=== PATIENT | female | born 1975 | race American Indian/Alaskan Native ===

== ENCOUNTER 2016-12-10 02:30 | Emergency (ER) | payer MEDICARE, OTHER ==
[2016-12-10 02:47] VITALS: BP 144/96
[2016-12-10 03:24] LABS: Anion Gap 20 mmol/L; Blood Urea Nitrogen 23 mg/dL (7-17); Calcium 8.6 mg/dL (8.4-10.2); Carbon Dioxide 18 mmol/L (22-30); Chloride 99.2 mmol/L (98-107); Glucose 149 mg/dL (65-100); Potassium 3.6 mmol/L (3.6-5.0); Sodium 134 mmol/L (137-145)
[2016-12-10 03:41] LABS: Hematocrit 43.7 % (30.3-42.9); Hemoglobin 15.3 gm/dl (10.1-14.3); Mean Corpuscular HGB Conc 35 % (30-34); Mean Corpuscular Hemoglobin 31 pg (28-32); Mean Corpuscular Volume 90 fl (79-97); Platelet Count 283 K/mm3 (140-440); Red Blood Count 4.87 M/mm3 (3.65-5.03); Red Cell Distribution Width 14.6 % (13.2-15.2); White Blood Count 9.6 K/mm3 (4.5-11.0)
[2016-12-10 04:20] LABS: Basophils % (Manual) 0 % (0.0-1.8); Blastocytes % (Manual) 0 %
[2016-12-10 04:21] LABS: Diff Status Complete; Platelet Estimate Consistent w Auto
== END 2016-12-10 02:55 | disposition left against medical advice (07) ==
LOC: ED 02:30
DX: R07.9 Chest pain, unspecified (principal); I25.2 Old myocardial infarction; E78.00 Pure hypercholesterolemia, unspecified; Z53.21 Procedure and treatment not carried out due to patient leaving prior to being seen by health care provider
CPT/HCPCS: 36415; 80048; 84484; 85007; 85025; 93005; 93010

== ENCOUNTER 2017-06-01 00:16 | Inpatient (IN) | payer MEDICARE, OTHER ==
[2017-06-01] MEDS ORDERED: NACL 0.9% 1000 ML 1,000 ML IV ONE (00:26)
[2017-06-01] MEDS ORDERED: MORPHINE IV ONE (00:27)
[2017-06-01] MEDS ORDERED: ZOFRAN ONE ×2 (00:30→01:31)
[2017-06-01] MEDS ORDERED: MORPHINE ONE (00:30)
--- NOTE | 2017-06-01 00:30 | Emergency Department Report ---
HPI - General Time Seen by Provider: 06/01/17 00:26 - HPI HPI: 41-year-old -[place] female presents to the emergency department via EMS from home with complaint of midsternal left-sided chest pain that began about 30 minutes prior to presentation and feels like a pressure sensation as if someone is sitting on her chest. She has some mild shortness of breath with it. She has some nausea without vomiting. No diaphoresis, back pain. She received 325 mg of aspirin in route. She has a past medical history of coronary artery disease with 3 previous GA and [address], hyperlipidemia. Her primary care and child adolescent psychiatrist is through the [facility]. ED Past Medical Hx - Past Medical History Hx Hypertension: No Hx Heart Attack/AMI: Yes (2013 3X) Hx Congestive Heart Failure: No Hx Diabetes: No Hx Deep Vein Thrombosis: No Hx Pulmonary Embolism: No Hx Renal Disease: No Hx Arthritis: No Hx Seizures: No Hx Asthma: No Hx COPD: No Hx HIV: No Additional medical history: ms. high cholesterol. cad - Surgical History Hx Coronary Stent: Yes Hx Pacemaker: No Hx Cholecystectomy: No Hx Appendectomy: No Hx Breast Surgery: Yes (Breast augmentation) Additional Surgical History: left shoulder and left thumb. "tummy tuck" - Social History Smoking Status: Never Smoker - Medications Home Medications: Home Medications Medication Instructions Recorded Confirmed Last Taken Type Aspirin [Aspirin BABY CHEW TAB] 81 mg PO DAILY 10/29/14 10/29/14 1 Day Ago History ~10/28/14 ED Review of Systems ROS: Stated complaint: CHEST PAIN Other details as noted in HPI Comment: All other systems reviewed and negative Constitutional: denies: chills, fever Eyes: denies: eye pain, eye discharge, vision change ENT: denies: ear pain, throat pain Respiratory: shortness of breath. denies: cough Cardiovascular: chest pain. denies: palpitations Gastrointestinal: nausea. denies: vomiting Genitourinary: denies: urgency, dysuria, discharge Musculoskeletal: denies: back pain, joint swelling, arthralgia Skin: denies: rash, lesions Neurological: denies: headache, weakness, paresthesias Physical Exam - Physical Exam Physical Exam: GENERAL: The patient is well-developed well-nourished. The patient appears very uncomfortable secondary to her chest pain. HENT: Normocephalic. Atraumatic. Patient has moist mucous membranes. EYES: Extraocular motions are intact. Pupils equal reactive to light bilaterally. NECK: Supple. Trachea is midline. CHEST/LUNGS: Clear to auscultation. There is no respiratory distress noted. HEART/CARDIOVASCULAR: Regular. There is no tachycardia. There is no gallop rub or murmur. ABDOMEN: Abdomen is soft, nontender. Patient has normal bowel sounds. There is no abdominal distention. SKIN: Skin is warm and dry. NEURO: The patient is awake, alert, and oriented. The patient is cooperative. The patient has no focal neurologic deficits. The patient has normal speech. MUSCULOSKELETAL: There is no tenderness or deformity. There is no limitation range of motion. There is no evidence of acute injury. ED Course - Consultations Consultation #1: The deputy chief magistrate on-call, Dr. Orozco, has been notified of STEMI and is on his way in to the [facility]. 06/01/17 00:29 ED Medical Decision Making - Lab Data Result diagrams: 06/01/17 00:30 06/01/17 00:30 - EKG Data -: EKG Interpreted by Me EKG shows normal: sinus rhythm, axis, intervals, QRS complexes, ST-T waves ( there are ST elevations to the inferior leads with ST depressions to the septal leads and aVL concerning for acute inferior ST elevation GA) Rate: normal - EKG Data When compared to previous EKG there are: previous EKG unavailable Interpretation: acute GA - Radiology Data Radiology results: image reviewed interpreted by me: Chest x-ray does not show any acute process. There are no pleural effusions, obvious pneumonia and there is no pneumothorax. - Medical Decision Making 41-year-old female presents with chest pain that started just 30 minute prior to presentation. EKG both from the field and upon arrival show inferior ST elevation GA. Labs were obtained, chest x-ray was done and the patient was taken to the [facility]. Patient is going to be admitted to the ICU by cardiology , Dr Orozco. - Differential Diagnosis STEMI, NSTEMI, Angina Critical Care Time: Yes Critical care time in (mins) excluding proc time.: 20 Critical care attestation.: If time is entered above; I have spent that time in minutes in the direct care of this critically ill patient, excluding procedure time. Critical care time spent on this patient during her initial evaluation, reevaluations, ordering medications, ordering and interpretation of labs and imaging, discussion with the deputy chief magistrate. Critical Care Time: 20 minutes ED Disposition Clinical Impression: Acute GA, inferior wall, Tobacco abuse STEMI (ST elevation myocardial infarction) Qualifiers: Involved coronary artery: unspecified coronary artery Qualified Code(s): I21.3 - ST elevation (STEMI) myocardial infarction of unspecified site Chest pain Qualifiers: Chest pain type: unspecified Qualified Code(s): R07.9 - Chest pain, unspecified Coronary artery disease Qualifiers: Coronary Disease-Associated Artery/Lesion type: [place] artery [place] vs. transplanted heart: [place] heart Associated angina: with stable angina Qualified Code(s): I25.118 - Atherosclerotic heart disease of [place] coronary artery with other forms of angina pectoris Disposition: 09 OP ADMIT IP TO THIS HOSP Is pt being admited?: Yes Condition: Serious Time of Disposition: 02:09
[2017-06-01 00:45] LABS: Basophils % (Auto) 1.9 % (0.0-1.8); Eosinophils % (Auto) 0.8 % (0.0-4.3); Hematocrit 42.8 % (30.3-42.9); Hemoglobin 14.3 gm/dl (10.1-14.3); Mean Corpuscular HGB Conc 33 % (30-34); Mean Corpuscular Hemoglobin 30 pg (28-32); Mean Corpuscular Volume 91 fl (79-97); Platelet Count 381 K/mm3 (140-440); Red Cell Distribution Width 14.4 % (13.2-15.2); White Blood Count 11.6 K/mm3 (4.5-11.0)
[2017-06-01] MEDS ORDERED: HEPARIN/NS 5000 UNIT/500ML(CATH LAB) 1,500 ML IR ONE (00:55)
[2017-06-01] MEDS ORDERED: SUBLIMAZE ONE (00:55)
[2017-06-01] MEDS ORDERED: HEPARIN 10,000 UNITS/10 ML ONE ×2 (00:55→01:10)
[2017-06-01] MEDS ORDERED: VERSED ONE (00:55)
[2017-06-01] MEDS ORDERED: NITROGLYCERIN SYRINGE 3 ML ONE (00:56)
[2017-06-01] MEDS ORDERED: XYLOCAINE 2% INFILTRATI ONE ×2 (00:56→00:59)
[2017-06-01] MEDS ORDERED: CALAN ONE (00:56)
[2017-06-01] MEDS ORDERED: REOPRO ONE ×2 (00:56→01:14)
[2017-06-01] MEDS ORDERED: HEPARIN/ 0.45% NACL-25,000 UNIT/500 ML 25,000 UNIT/500 ML BAG IV SCH (01:00)
[2017-06-01 01:03] LABS: Creatine Kinase MB 4.1 ng/mL (0.0-4.0)
[2017-06-01 01:06] LABS: BUN/Creatinine Ratio 19; Blood Urea Nitrogen 17 mg/dL (7-17); Calcium 8.6 mg/dL (8.4-10.2); Carbon Dioxide 21 mmol/L (22-30); Chloride 98.7 mmol/L (98-107); Glucose 119 mg/dL (65-100); INR 1.06 (0.87-1.13); Sodium 135 mmol/L (137-145)
[2017-06-01 01:07] LABS: Partial Thromboplastin Time 25.7 Sec. (24.2-36.6)
[2017-06-01 01:11] LABS: Anion Gap 21 mmol/L
[2017-06-01 01:12] LABS: Creatine Kinase 351 units/L (30-135); Potassium 5.5 mmol/L (3.6-5.0)
[2017-06-01] MEDS ORDERED: REOPRO IV ONE (01:15)
[2017-06-01] MEDS ORDERED: NEO SYNEPHRINE/NS Syringe(OR USE) IV ONE ×2 (01:15)
[2017-06-01] MEDS ORDERED: BRILINTA PO ONE (01:15)
[2017-06-01] MEDS ORDERED: NACL 0.9% 250ML 250 ML ONE (01:16)
[2017-06-01] MEDS ORDERED: NACL 0.9% 500 ML 500 ML ONE (01:23)
[2017-06-01] MEDS ORDERED: BRILINTA ONE (01:37)
--- NOTE | 2017-06-01 01:40 | XRay Report ---
FINAL REPORT PROCEDURE: XR CHEST 1V AP TECHNIQUE: Chest radiograph anteroposterior view. CPT 77261 HISTORY: chest pain COMPARISON: No prior studies are available for comparison. FINDINGS: Heart: Normal. Mediastinum/Vessels: Normal. Lungs/Pleural space: Normal. Bony thorax: No acute osseous abnormality. Life support devices: None. IMPRESSION: No acute cardiopulmonary abnormality.
[2017-06-01] MEDS ORDERED: ULTRAM PO PRN (01:47)
[2017-06-01] MEDS ORDERED: ZOFRAN IV PRN (01:47)
--- NOTE | 2017-06-01 01:57 | History and Physical Report ---
History of Present Illness Date of examination: 06/01/17 Date of admission: 06/01/2017 Chief complaint: chest pain History of present illness: This is a 41-year-old female with history of known coronary disease 2014 had an acute inferior wall [place] requiring PCI would've bare metal stent patient's is clinically had another acute [place] at the [facility] and a stent in the obtuse marginal 2 and another stent for in-stent restenosis in the RCA. Patient states compliance with aspirin and Plavix but is a smoker. Patient was doing her normal activities were any issues with late this evening had acute midsternal chest pain with nausea vomiting diaphoresis pressure-like rating into the left arm. EMS was called showed an acute inferior wall [place] patient was taken emergently to the [facility] found proximal RCA to be 100% and successful PCI of the mid RCA drug-eluting stent. Patient is chest pain-free at the case patient states lipids have not been controlled. Patient states she gets care at the [facility]. Patient denies any stroke symptoms no fever no chills no palpitations no muscle pains Past History Past Medical History: CAD (2014 acute [place] inferior PCI of the RCA and OM 2), hypertension, hyperlipidemia Past Surgical History: denies: No surgical history Social history: smoking. denies: alcohol abuse, prescription drug abuse Family history: denies: no significant family history Medications and Allergies Allergies Allergy/AdvReac Type Severity Reaction Status Date / Time No Known Allergies Allergy Verified 12/03/13 08:01 Home Medications Medication Instructions Recorded Confirmed Last Taken Type Aspirin [Aspirin BABY CHEW TAB] 81 mg PO DAILY 10/29/14 10/29/14 1 Day Ago History ~10/28/14 Active Meds: Active Medications Heparin Sodium/Sodium Chloride (Heparin/ 0.45% Nacl-25,000 Unit/500 Ml) 25,000 unit in 500 mls @ 20 mls/hr IV TITRATE JERRY; 1,000 UNITS/HR PRN Reason: Protocol Last Admin: 06/01/17 00:45 Dose: 1,000 units/hr, 20 mls/hr Sodium Chloride (Nacl 0.9% 1000 Ml) 1,000 mls @ 42 mls/hr IV ONCE ONE Stop: 06/02/17 00:14 Last Admin: 06/01/17 00:43 Dose: 42 mls/hr Lisinopril , simvastatin 40 aspirin and Plavix Review of Systems All systems: negative (as per the HPI) Physical Examination Vital Signs Resp 15 06/01/17 00:29 General appearance: mild distress, well-nourished HEENT: Positive: PERRL, Mucus Membranes Moist Neck: Positive: neck supple, trachea midline Cardiac: Positive: Reg Rate and Rhythm, S1/S2. Negative: Audible Murmur Lungs: Positive: clear to auscultation, Normal Breath Sounds Neuro: Positive: Grossly Intact Abdomen: Positive: Soft, Active Bowel Sounds. Negative: Tender, Distended Female genitourinary: deferred Skin: Positive: Clear Incision: Cardiac Cath Site (right groin sheath no hematoma) Musculoskeletal: No Pain, Normal Range of Motion Extremities: Present: normal. Absent: edema Results 06/01/17 00:30 06/01/17 00:30 Cardiac Enzymes 06/01/17 Range/Units 00:30 CK-MB (CK-2) 4.1 H (0.0-4.0) ng/mL Coagulation 06/01/17 Range/Units 00:30 PT 14.3 (12.2-14.9) Sec. INR 1.06 (0.87-1.13) APTT 25.7 (24.2-36.6) Sec. CBC 06/01/17 Range/Units 00:30 WBC 11.6 H (4.5-11.0) K/mm3 RBC 4.70 (3.65-5.03) M/mm3 Hgb 14.3 (10.1-14.3) gm/dl Hct 42.8 (30.3-42.9) % Plt Count 381 (140-440) K/mm3 Lymph # 4.5 (1.2-5.4) K/mm3 [place] # 1.0 H (0.0-0.8) K/mm3 Eos # 0.1 (0.0-0.4) K/mm3 Baso # 0.2 H (0.0-0.1) K/mm3 Comprehensive Metabolic Panel 06/01/17 Range/Units 00:30 Sodium 135 L (137-145) mmol/L Potassium 5.5 H (3.6-5.0) mmol/L Chloride 98.7 (98-107) mmol/L Carbon Dioxide 21 L (22-30) mmol/L BUN 17 (7-17) mg/dL Creatinine 0.9 (0.7-1.2) mg/dL Glucose 119 H (65-100) mg/dL Calcium 8.6 (8.4-10.2) mg/dL - Imaging and Cardiology Cardiac cath: report reviewed EKG interpretations - Telemetry EKG Rhythm: Sinus Rhythm (sinus rhythm with acute inferior wall WV) Assessment and Plan Acute inferior wall mi Acute diastolic dysfunction Tobacco abuse Obesity Hypertension Hyperlipidemia Recommend post-PCI care aggressive smoking cessation education are present continue ReoPro and IV fluids aspirin changed to brilinta as patient has been Plavix - Patient Problems (1) Acute [place], inferior wall Current Visit: Yes Status: Acute (2) Acute congestive heart failure with left ventricular diastolic dysfunction Current Visit: Yes Status: Acute (3) Obese Current Visit: No Status: Chronic Qualifiers: Obesity type: due to excess calories Serious obesity comorbidity presence: with serious comorbidity Body mass index: BMI 37.0-37.9 (4) Coronary artery disease Current Visit: No Status: Chronic Qualifiers: Coronary Disease-Associated Artery/Lesion type: [place] artery [place] vs. transplanted heart: [place] heart Associated angina: with stable angina Qualified Code(s): I25.118 - Atherosclerotic heart disease of [place] coronary artery with other forms of angina pectoris (5) Hyperlipidemia Current Visit: No Status: Chronic Qualifiers: Hyperlipidemia type: mixed hyperlipidemia Qualified Code(s): E78.2 - Mixed hyperlipidemia (6) Hypertension Current Visit: No Status: Chronic Qualifiers: Hypertension type: essential hypertension Qualified Code(s): I10 - Essential (primary) hypertension (7) Tobacco abuse Current Visit: No Status: Chronic
[2017-06-01] MEDS ORDERED: REOPRO 9 MG in NACL 0.9% 250ML 245.5 ML IV SCH ×2 (02:00→10:15)
[2017-06-01] MEDS ORDERED: NACL 0.9% 1000 ML 1,000 ML IV SCH (02:00)
[2017-06-01] MEDS: NORCO 5/325 PO PRN ×2 (03:37→21:11)
[2017-06-01 05:01] LABS: Creatine Kinase MB 12.6 ng/mL (0.0-4.0)
[2017-06-01 08:04] LABS: Creatine Kinase MB 28.5 ng/mL (0.0-4.0)
[2017-06-01 08:06] LABS: Alanine Aminotransferase 32 units/L (7-56); Albumin 3.4 g/dL (3.9-5); Albumin/Globulin Ratio 1.2 %; Alkaline Phosphatase 98 units/L (35-129); Anion Gap 15 mmol/L; BUN/Creatinine Ratio 23; Blood Urea Nitrogen 16 mg/dL (7-17); Carbon Dioxide 20 mmol/L (22-30); Chloride 103.4 mmol/L (98-107); Glucose 96 mg/dL (65-100); Potassium 4.1 mmol/L (3.6-5.0); Sodium 134 mmol/L (137-145); Total Protein 6.3 g/dL (6.3-8.2)
[2017-06-01] MEDS ORDERED: REGLAN IV ONE (08:14)
[2017-06-01 08:15] LABS: Basophils % (Auto) 0.4 % (0.0-1.8); Eosinophils % (Auto) 0.1 % (0.0-4.3); Hematocrit 37.3 % (30.3-42.9); Hemoglobin 12.9 gm/dl (10.1-14.3); Mean Corpuscular HGB Conc 35 % (30-34); Mean Corpuscular Hemoglobin 31 pg (28-32); Mean Corpuscular Volume 91 fl (79-97); Platelet Count 259 K/mm3 (140-440); Red Blood Count 4.13 M/mm3 (3.65-5.03); Red Cell Distribution Width 14.1 % (13.2-15.2); White Blood Count 7.9 K/mm3 (4.5-11.0)
--- NOTE | 2017-06-01 08:40 | Cardiac Catherization Report ---
LEFT HEART CATHETERIZATION/PERCUTANEOUS CORONARY INTERVENTIONAL REPORT/INTRAVASCULAR ULTRASOUND REPORT CHIEF COMPLAINT: Chest pain. CLINICAL INFORMATION: This is a 41-year-old -[place] female with hypertension, obesity, known coronary artery disease in 2013, required PCI of the proximal RCA with bare-metal stent. Subsequently, the patient gets her care at the [place] and required another stent to RCA for ISR. The patient is compliant with aspirin and Plavix, but is a smoker of about half-a-pack presents with acute chest pain late this night and called the EMS found to have acute inferior wall TN. The patient was brought to [facility] for acute TN protocol. PROCEDURE: I was initially tried via the right radial, but unable to get access, so access was gained via the right common femoral artery, sterile technique, local anesthesia, 6-[place] groin sheath inserted. FINDINGS: 1. Left system engaged with JL4 catheter, left main is a medium to large caliber vessel, patent. LAD is a medium caliber vessel that is patent from proximal, distal is patent. Diagonal 1, small caliber vessel, is patent. Circumflex, proximal is patent. OM1 is a small to medium caliber and patent. OM2 is a small to medium caliber, patent, with mid stent is widely patent. RCA engaged with JR4 is 100% proximal stents. LV gram done in DANISH and SILVA view shows normal LV function, ef 55%, LV is 105/16, LVEDP 16 mm hg aortic is 98/67. No significant gradient across the aortic valve on pullback. 2. Percutaneous coronary intervention RCA. a. Engaged RCA with 6-[place] JR4 guiding catheter. b. Crossed into the distal PDA with a [place] wire. c. Then pre-dilated with 2.5 x 12 mm balloon x 2 inflations within the stents and outside the stent at 10 atmospheres. d. Repeat angiogram showed MORRO 3 flow and residual stenosis noted within the mid stent and within the mid lesion. e. Intravascular ultrasound showed 2 stent layers in the proximal and mid stent reference vessel was 2.8 x 2.9. f. Stented with a drug-eluting Resolute 2.75 x 18 in the mid up to the proximal portion. g. Inflated at 15 atmospheres. h. Then use the same stent balloon to inflate the previous stents as there is heavy diffuse disease within the proximal portion at 15 atmospheres. i. Repeat angiogram with excellent angiographic result. Repeat IVUS showed stent was well opposed and expanded, the new stent and the previous ones also. j. Repeat angiogram removed the wire showed continued MORRO 3 flow. No dissection or perforation. No thrombus noted. A 6-[place]aitian guiding catheter taken over a guidewire, 6-Haitian groin sheath was sewn in. No hematoma, no bleeding. The patient received Reopro and is at the beginning of the case and it is going to be changed from Plavix to Brilinta, continue. The patient was hypotensive, we will continue IV fluids, was also given Levophed during the case. SUMMARY: 1. Successful PCI of the RCA with a drug-eluting Resolute 2.75 x 18, post-dilated the previous proximal stents 2.75 x 18 balloon. Changed Plavix to Brilinta. Continue aspirin and aggressive statin medications. We will hold off beta blockers and SAUL inhibitors secondary to low blood pressure. 2. Left main patent, LAD patent, circ patent. OM1 patent OM2 stent patent. 3. Normal LV function. 4. Post-PCI care in the unit. Discharge sheath when ACT is less than 150. Discussed this with the patient and patient's family. JOB# [id number] JOIE/QASIM PAUL
[2017-06-01] MEDS ORDERED: REOPRO IV SCH (10:00)
--- NOTE | 2017-06-01 10:09 | Progress Note ---
Assessment and Plan Acute inferior wall mi Acute diastolic dysfunction Tobacco abuse Obesity Hypertension Hyperlipidemia Recommend finishing off ReoPro sheath has been removed no hematoma patient is abdomen is stable check a.m. labs will hold off lisinopril for today and beta blockers for to be of low blood pressure - Patient Problems (1) Acute [place], inferior wall Current Visit: Yes Status: Acute (2) Acute congestive heart failure with left ventricular diastolic dysfunction Current Visit: Yes Status: Acute (3) Obese Current Visit: No Status: Chronic Qualifiers: Obesity type: due to excess calories Serious obesity comorbidity presence: with serious comorbidity Body mass index: BMI 37.0-37.9 (4) Coronary artery disease Current Visit: Yes Status: Chronic Qualifiers: Coronary Disease-Associated Artery/Lesion type: [place] artery [place] vs. transplanted heart: [place] heart Associated angina: with stable angina Qualified Code(s): I25.118 - Atherosclerotic heart disease of [place] coronary artery with other forms of angina pectoris (5) Hyperlipidemia Current Visit: No Status: Chronic Qualifiers: Hyperlipidemia type: mixed hyperlipidemia Qualified Code(s): E78.2 - Mixed hyperlipidemia (6) Hypertension Current Visit: No Status: Chronic Qualifiers: Hypertension type: essential hypertension Qualified Code(s): I10 - Essential (primary) hypertension (7) Tobacco abuse Current Visit: Yes Status: Chronic Subjective Date of service: 06/01/17 Principal diagnosis: acute OH Interval history: Patient is chest pain-free abdomen is feeling better Objective Vital Signs Temp Pulse Pulse Pulse Resp BP Pulse Ox 06/01/17 09:36 85 22 100 06/01/17 09:30 86 20 110/69 100 06/01/17 09:02 100 06/01/17 09:00 85 20 100/73 100 06/01/17 08:50 78 16 113/68 100 06/01/17 08:40 115/69 99 06/01/17 08:30 98.2 F 76 17 114/64 100 06/01/17 08:20 70 15 121/77 100 06/01/17 08:10 72 12 113/64 100 06/01/17 08:00 74 21 115/70 100 06/01/17 07:52 98.2 F 06/01/17 07:50 74 17 102/60 99 06/01/17 07:45 13 102/60 100 06/01/17 07:41 77 12 116/70 100 11/19/17 07:37 78 13 100 06/01/17 07:31 74 15 116/70 100 06/01/17 07:30 13 116/70 100 17 07:20 80 14 116/70 99 06/01/17 07:15 71 13 125/60 100 06/01/17 07:10 72 17 112/72 99 17 07:00 72 17 119/65 100 17 06:50 71 21 98/56 98 17 06:40 74 19 101/61 98 17 06:30 71 22 100/61 98 17 06:20 70 12 97/55 97 17 06:11 74 19 102/62 99 17 06:00 72 19 102/62 98 17 05:51 72 18 100/64 100 17 05:41 72 18 101/61 100 17 05:30 74 21 101/61 97 17 05:21 77 17 99/65 99 17 05:11 76 15 105/71 98 17 05:05 22 2 L 17 05:00 76 19 105/71 98 17 04:51 76 21 97/61 97 17 04:41 75 16 100/64 97 17 04:30 70 19 100/64 98 17 04:21 72 20 105/72 98 17 04:11 73 18 95/59 97 17 04:00 68 17 95/59 98 17 03:57 98.3 F 17 03:51 74 19 98/56 95 17 03:41 66 22 111/68 99 17 03:30 71 9 L 111/68 98 17 03:21 78 21 115/68 99 17 03:18 73 9 L 99 17 03:11 79 10 L 115/73 97 17 03:00 69 19 115/73 99 17 02:51 72 22 114/75 99 17 02:41 76 15 99 17 02:33 74 14 98 06/01/17 00:46 98.7 F 06/01/17 00:41 78 15 93/58 99 06/01/17 00:33 76 10 L 93/58 100 06/01/17 00:31 78 13 100 06/01/17 00:29 15 - Physical Examination General: No Apparent Distress HEENT: Positive: PERRL, Mucus Membranes Moist Neck: Positive: neck supple, trachea midline Cardiac: Positive: Reg Rate and Rhythm Lungs: Positive: clear to auscultation Neuro: Positive: Grossly Intact Abdomen: Positive: Soft, Active Bowel Sounds. Negative: Tender, Distended Skin: Positive: Clear Incision: Cardiac Cath Site (no hematoma) Musculoskeletal: No Pain, Normal Range of Motion Extremities: Present: normal. Absent: edema - Labs and Meds Cardiac Enzymes 06/01/17 06/01/17 06/01/17 Range/Units 00:30 04:01 07:23 AST (5-40) units/L CK-MB (CK-2) 4.1 H 12.6 H 28.5 H (0.0-4.0) ng/mL 06/01/17 Range/Units 07:23 AST 30 (5-40) units/L CK-MB (CK-2) (0.0-4.0) ng/mL Coagulation 06/01/17 Range/Units 00:30 PT 14.3 (12.2-14.9) Sec. INR 1.06 (0.87-1.13) APTT 25.7 (24.2-36.6) Sec. Lipids 06/01/17 Range/Units 04:01 Triglycerides 140 (2-149) mg/dL Cholesterol 184 (50-199) mg/dL HDL Cholesterol 32 L (40-59) mg/dL Cholesterol/HDL Ratio 5.75 % CBC 06/01/17 06/01/17 Range/Units 00:30 07:23 WBC 11.6 H 7.9 (4.5-11.0) K/mm3 RBC 4.70 4.13 (3.65-5.03) M/mm3 Hgb 14.3 12.9 (10.1-14.3) gm/dl Hct 42.8 37.3 (30.3-42.9) % Plt Count 381 259 (140-440) K/mm3 Lymph # 4.5 1.5 (1.2-5.4) K/mm3 [place] # 1.0 H 0.3 (0.0-0.8) K/mm3 Eos # 0.1 0.0 (0.0-0.4) K/mm3 Baso # 0.2 H 0.0 (0.0-0.1) K/mm3 Comprehensive Metabolic Panel 06/01/17 06/01/17 Range/Units 00:30 07:23 Sodium 135 L 134 L (137-145) mmol/L Potassium 5.5 H 4.1 D (3.6-5.0) mmol/L Chloride 98.7 103.4 (98-107) mmol/L Carbon Dioxide 21 L 20 L (22-30) mmol/L BUN 17 16 (7-17) mg/dL Creatinine 0.9 0.7 (0.7-1.2) mg/dL Glucose 119 H 96 (65-100) mg/dL Calcium 8.6 8.0 L (8.4-10.2) mg/dL AST 30 (5-40) units/L ALT 32 (7-56) units/L Alkaline Phosphatase 98 (35-129) units/L Total Protein 6.3 (6.3-8.2) g/dL Albumin 3.4 L (3.9-5) g/dL - Imaging and Cardiology Cardiac cath: report reviewed - Telemetry EKG Rhythm: Sinus Rhythm
[2017-06-01] MEDS: BABY ASPIRIN PO SCH (10:19)
--- NOTE | 2017-06-01 14:37 | Consultation ---
History of Present Illness Consult date: 06/01/17 Requesting physician: VENKAT JOHNSON Reason for consult: other (Acute MS) History of present illness: PULMONARY/CCM CONSULT NOTE (Full dictation # [id number]) Please see dictated notes for full details Past History Past Medical History: CAD (2014 acute [place] inferior PCI of the RCA and OM 2), hypertension, hyperlipidemia Past Surgical History: denies: No surgical history Social history: smoking. denies: alcohol abuse, prescription drug abuse Family history: denies: no significant family history Medications and Allergies Allergies Allergy/AdvReac Type Severity Reaction Status Date / Time No Known Allergies Allergy Verified 12/03/13 08:01 Home Medications Medication Instructions Recorded Confirmed Last Taken Type Aspirin [Aspirin BABY CHEW TAB] 81 mg PO DAILY 10/29/14 06/01/17 06/01/17 History 81mg Lisinopril [Prinivil] 5 mg PO DAILY 06/01/17 06/01/17 06/01/17 History 5mg Active Meds: Active Medications Acetaminophen/Hydrocodone Bitart ([place] 5/325) 1 each PO Q6H PRN PRN Reason: Pain, Moderate (4-6) Last Admin: 06/01/17 03:37 Dose: 1 each Aspirin (Baby Aspirin) 81 mg PO QDAY JERRY Last Admin: 06/01/17 10:19 Dose: 81 mg Atorvastatin Calcium (Lipitor) 80 mg PO QHS JERRY Heparin Sodium/Sodium Chloride (Heparin/ 0.45% Nacl-25,000 Unit/500 Ml) 25,000 unit in 500 mls @ 20 mls/hr IV TITRATE JERRY; 1,000 UNITS/HR PRN Reason: Protocol Last Admin: 06/01/17 00:45 Dose: 1,000 units/hr, 20 mls/hr Sodium Chloride (Nacl 0.9% 1000 Ml) 1,000 mls @ 42 mls/hr IV ONCE ONE Stop: 06/02/17 00:14 Last Admin: 06/01/17 00:43 Dose: 42 mls/hr Sodium Chloride (Nacl 0.9% 1000 Ml) 1,000 mls @ 100 mls/hr IV DIRECT JERRY Stop: 06/01/17 18:00 Last Admin: 06/01/17 04:40 Dose: 150 mls/hr Abciximab 9 mg/ Sodium (Chloride) 250 mls @ 17 mls/hr IV DIRECT JERRY PRN Reason: Protocol Stop: 06/01/17 16:00 Last Admin: 06/01/17 10:00 Dose: 17 mls/hr Ondansetron HCl (Zofran) 4 mg IV Q8H PRN PRN Reason: N/V unrelieved by Jamie Last Admin: 06/01/17 07:52 Dose: 4 mg Ticagrelor (Brilinta) 90 mg PO BID JERRY Tramadol HCl (Ultram) 50 mg PO Q4H PRN PRN Reason: Pain, Mild (1-3) Physical Examination Vital signs: Vital Signs Resp 15 06/01/17 00:29 Results - Laboratory Findings CBC and BMP: 06/02/17 04:38 06/02/17 04:38 PT/INR, D-dimer PT 14.3 Sec. (12.2-14.9) 06/01/17 00:30 INR 1.06 (0.87-1.13) 06/01/17 00:30 Abnormal lab findings: Abnormal Labs 06/01/17 06/01/17 06/01/17 00:30 00:30 04:01 WBC 11.6 H MCHC Lymph % (Auto) 38.9 H Bureau % (Auto) 8.8 H Baso % (Auto) 1.9 H Bureau # 1.0 H Baso # 0.2 H Seg Neutrophils % Activated Clotting Time Sodium 135 L Potassium 5.5 H Carbon Dioxide 21 L Glucose 119 H Calcium Total Creatine Kinase 351 H 335 H CK-MB (CK-2) 4.1 H 12.6 H CK-MB (CK-2) Rel Index Troponin T 0.248 H* D Albumin HDL Cholesterol 32 L 06/01/17 06/01/17 06/01/17 04:51 07:23 07:23 WBC MCHC Lymph % (Auto) Bureau % (Auto) Baso % (Auto) Bureau # Baso # Seg Neutrophils % Activated Clotting Time > 1000 H Sodium 134 L Potassium Carbon Dioxide 20 L Glucose Calcium 8.0 L Total Creatine Kinase 421 H CK-MB (CK-2) 28.5 H CK-MB (CK-2) Rel Index 6.7 H Troponin T 0.571 H* D Albumin 3.4 L HDL Cholesterol 06/01/17 07:23 WBC MCHC 35 H Lymph % (Auto) Bureau % (Auto) Baso % (Auto) Bureau # Baso # Seg Neutrophils % 76.0 H Activated Clotting Time Sodium Potassium Carbon Dioxide Glucose Calcium Total Creatine Kinase CK-MB (CK-2) CK-MB (CK-2) Rel Index Troponin T Albumin HDL Cholesterol
[2017-06-01] MEDS: PROTONIX PO SCH (22:44)
[2017-06-01] MEDS: BRILINTA PO SCH (22:45)
[2017-06-02 05:26] LABS: Basophils % (Auto) 0.5 % (0.0-1.8); Eosinophils % (Auto) 0.6 % (0.0-4.3); Hematocrit 38.7 % (30.3-42.9); Hemoglobin 12.8 gm/dl (10.1-14.3); Mean Corpuscular HGB Conc 33 % (30-34); Mean Corpuscular Hemoglobin 30 pg (28-32); Mean Corpuscular Volume 91 fl (79-97); Platelet Count 292 K/mm3 (140-440); Red Blood Count 4.23 M/mm3 (3.65-5.03); White Blood Count 9.8 K/mm3 (4.5-11.0)
[2017-06-02 05:45] LABS: Creatine Kinase MB 15.8 ng/mL (0.0-4.0)
[2017-06-02 05:46] LABS: Alanine Aminotransferase 57 units/L (7-56); Albumin 3.4 g/dL (3.9-5); Albumin/Globulin Ratio 1.1 %; Alkaline Phosphatase 97 units/L (35-129); Anion Gap 16 mmol/L; BUN/Creatinine Ratio 14; Blood Urea Nitrogen 10 mg/dL (7-17); Calcium 8.2 mg/dL (8.4-10.2); Carbon Dioxide 25 mmol/L (22-30); Chloride 101.8 mmol/L (98-107); Creatine Kinase 428 units/L (30-135); Glucose 94 mg/dL (65-100); Potassium 3.7 mmol/L (3.6-5.0); Sodium 139 mmol/L (137-145); Total Protein 6.4 g/dL (6.3-8.2)
--- NOTE | 2017-06-02 07:25 | XRay Report ---
AP CHEST: HISTORY: chest pain, recent cardiac catheterization. AP view of the chest demonstrates a normal mediastinal and cardiac contour with clear lungs and normal bony and soft tissue structures. IMPRESSION: Unremarkable AP chest. No change since 06/01/17.
[2017-06-02] MEDS: BRILINTA PO SCH (09:30)
[2017-06-02] MEDS: BABY ASPIRIN PO SCH (09:30)
[2017-06-02] MEDS: PROTONIX PO SCH (09:30)
--- NOTE | 2017-06-02 09:59 | Progress Note ---
Assessment and Plan Assessment: Acute inferior wall mi CAD, s/p PCI Acute diastolic dysfunction Tobacco abuse Obesity Hypertension Hyperlipidemia Plan: BPs stable. Resume home lisinopril and initiate low dose lopressor. Cont ASA 81, brilinta, lipitor. Await echo. Possible d/c home this afternoon if echo reveals no gross abnormalities and pt remains clinically and hemodynamically stable. The patient has been seen in conjunction with Dr. Padron who agrees with the assessment and plan of care. - Patient Problems (1) Acute MN, inferior wall Current Visit: Yes Status: Acute (2) Acute congestive heart failure with left ventricular diastolic dysfunction Current Visit: Yes Status: Acute (3) Obese Current Visit: No Status: Chronic Qualifiers: Obesity type: due to excess calories Serious obesity comorbidity presence: with serious comorbidity Body mass index: BMI 37.0-37.9 (4) Coronary artery disease Current Visit: Yes Status: Chronic Qualifiers: Coronary Disease-Associated Artery/Lesion type: [place] artery [place] vs. transplanted heart: [place] heart Associated angina: with stable angina Qualified Code(s): I25.118 - Atherosclerotic heart disease of [place] coronary artery with other forms of angina pectoris (5) Hyperlipidemia Current Visit: No Status: Chronic Qualifiers: Hyperlipidemia type: mixed hyperlipidemia Qualified Code(s): E78.2 - Mixed hyperlipidemia (6) Hypertension Current Visit: No Status: Chronic Qualifiers: Hypertension type: essential hypertension Qualified Code(s): I10 - Essential (primary) hypertension (7) Tobacco abuse Current Visit: Yes Status: Chronic Subjective Date of service: 06/02/17 Principal diagnosis: acute MN Interval history: Pt sitting at bedside comfortably, no current complaints. Awaiting echo. Objective Last Vital Signs Temp 98.7 F 06/02/17 09:00 Pulse 82 06/02/17 08:50 Resp 28 H 06/02/17 08:50 BP 124/80 06/02/17 08:50 Pulse Ox 95 06/02/17 09:01 - Physical Examination General: No Apparent Distress HEENT: Positive: PERRL, Mucus Membranes Moist Neck: Positive: neck supple, trachea midline Cardiac: Positive: Reg Rate and Rhythm, S1/S2 Lungs: Positive: clear to auscultation Neuro: Positive: Grossly Intact Abdomen: Positive: Soft, Active Bowel Sounds. Negative: Tender, Distended Skin: Positive: Clear Incision: Cardiac Cath Site (no hematoma) Musculoskeletal: No Pain, Normal Range of Motion Extremities: Present: normal. Absent: edema - Labs and Meds Cardiac Enzymes 06/02/17 Range/Units 04:38 AST 68 H (5-40) units/L CK-MB (CK-2) 15.8 H (0.0-4.0) ng/mL CBC 06/02/17 Range/Units 04:38 WBC 9.8 (4.5-11.0) K/mm3 RBC 4.23 (3.65-5.03) M/mm3 Hgb 12.8 (10.1-14.3) gm/dl Hct 38.7 (30.3-42.9) % Plt Count 292 (140-440) K/mm3 Lymph # 1.9 (1.2-5.4) K/mm3 [place] # 1.2 H (0.0-0.8) K/mm3 Eos # 0.1 (0.0-0.4) K/mm3 Baso # 0.1 (0.0-0.1) K/mm3 Comprehensive Metabolic Panel 06/02/17 Range/Units 04:38 Sodium 139 (137-145) mmol/L Potassium 3.7 (3.6-5.0) mmol/L Chloride 101.8 (98-107) mmol/L Carbon Dioxide 25 (22-30) mmol/L BUN 10 (7-17) mg/dL Creatinine 0.7 (0.7-1.2) mg/dL Glucose 94 (65-100) mg/dL Calcium 8.2 L (8.4-10.2) mg/dL AST 68 H (5-40) units/L ALT 57 H (7-56) units/L Alkaline Phosphatase 97 (35-129) units/L Total Protein 6.4 (6.3-8.2) g/dL Albumin 3.4 L (3.9-5) g/dL - Imaging and Cardiology Echo: pending Cardiac cath: report reviewed - Telemetry EKG Rhythm: Sinus Rhythm
[2017-06-02] MEDS ORDERED: LOPRESSOR PO SCH (11:00)
[2017-06-02] MEDS ORDERED: ZESTRIL PO SCH (11:00)
--- NOTE | 2017-06-02 11:14 | Progress Note ---
Subjective Date of service: 06/02/17 Principal diagnosis: acute [place] Interval history: Patient is seen today for: Acute [place]; CAD; HTN; Tobacco Use Disorder Seen and examined at bedside; 24hour events reviewed; nursing and respiratory care staff consulted; no adverse overnight events reported to me; Objective Vital Signs - 12hr 06/01/17 06/01/17 06/01/17 23:21 23:31 23:33 Temperature 98.8 F Pulse Rate 82 82 Pulse Rate [ Left Dorsalis Pedis] Pulse Rate [ Right Dorsalis Pedis] Pulse Rate [ Right Radial] Respiratory 20 26 H Rate Blood Pressure 128/77 128/77 O2 Sat by Pulse 96 96 Oximetry 06/01/17 06/01/17 06/02/17 23:41 23:51 00:00 Temperature Pulse Rate 83 83 77 Pulse Rate [ Left Dorsalis Pedis] Pulse Rate [ Right Dorsalis Pedis] Pulse Rate [ Right Radial] Respiratory 18 16 24 Rate Blood Pressure 128/77 128/77 118/71 O2 Sat by Pulse 98 99 98 Oximetry 06/02/17 06/02/17 06/02/17 00:11 00:21 00:31 Temperature Pulse Rate 77 82 85 Pulse Rate [ Left Dorsalis Pedis] Pulse Rate [ Right Dorsalis Pedis] Pulse Rate [ Right Radial] Respiratory 23 18 12 Rate Blood Pressure 118/71 128/77 118/71 O2 Sat by Pulse 98 99 98 Oximetry 06/02/17 06/02/17 06/02/17 00:41 00:51 01:01 Temperature Pulse Rate 75 86 84 Pulse Rate [ Left Dorsalis Pedis] Pulse Rate [ Right Dorsalis Pedis] Pulse Rate [ Right Radial] Respiratory 21 18 17 Rate Blood Pressure 118/71 118/71 118/71 O2 Sat by Pulse 98 100 99 Oximetry 06/02/17 06/02/17 06/02/17 01:11 01:21 01:31 Temperature Pulse Rate 82 80 79 Pulse Rate [ Left Dorsalis Pedis] Pulse Rate [ Right Dorsalis Pedis] Pulse Rate [ Right Radial] Respiratory 19 19 20 Rate Blood Pressure 118/71 118/71 118/71 O2 Sat by Pulse 99 97 98 Oximetry 06/02/17 06/02/17 06/02/17 01:41 01:51 02:00 Temperature Pulse Rate 79 79 75 Pulse Rate [ Left Dorsalis Pedis] Pulse Rate [ Right Dorsalis Pedis] Pulse Rate [ Right Radial] Respiratory 20 19 22 Rate Blood Pressure 118/71 118/71 118/71 O2 Sat by Pulse 97 97 98 Oximetry 06/02/17 06/02/17 06/02/17 02:11 02:21 02:31 Temperature Pulse Rate 76 77 82 Pulse Rate [ Left Dorsalis Pedis] Pulse Rate [ Right Dorsalis Pedis] Pulse Rate [ Right Radial] Respiratory 19 23 22 Rate Blood Pressure 124/74 124/74 124/74 O2 Sat by Pulse 98 97 98 Oximetry 06/02/17 06/02/17 06/02/17 02:41 02:50 03:05 Temperature Pulse Rate 86 93 H 78 Pulse Rate [ Left Dorsalis Pedis] Pulse Rate [ Right Dorsalis Pedis] Pulse Rate [ Right Radial] Respiratory 23 18 18 Rate Blood Pressure 124/74 124/74 124/74 O2 Sat by Pulse 98 90 98 Oximetry 06/02/17 06/02/17 06/02/17 03:11 03:21 03:31 Temperature Pulse Rate 78 79 81 Pulse Rate [ Left Dorsalis Pedis] Pulse Rate [ Right Dorsalis Pedis] Pulse Rate [ Right Radial] Respiratory 26 H 15 14 Rate Blood Pressure 124/74 124/74 124/74 O2 Sat by Pulse 99 98 99 Oximetry 06/02/17 06/02/17 06/02/17 03:41 03:51 03:53 Temperature 98.2 F Pulse Rate 76 77 Pulse Rate [ Left Dorsalis Pedis] Pulse Rate [ Right Dorsalis Pedis] Pulse Rate [ Right Radial] Respiratory 22 21 Rate Blood Pressure 124/74 124/74 O2 Sat by Pulse 98 98 Oximetry 06/02/17 06/02/17 06/02/17 04:00 04:11 04:21 Temperature Pulse Rate 81 80 77 Pulse Rate [ 80 Left Dorsalis Pedis] Pulse Rate [ 80 Right Dorsalis Pedis] Pulse Rate [ 80 Right Radial] Respiratory 24 19 20 Rate Blood Pressure 130/85 130/85 130/85 O2 Sat by Pulse 96 97 97 Oximetry 06/02/17 06/02/17 06/02/17 04:31 04:41 04:51 Temperature Pulse Rate 87 78 81 Pulse Rate [ Left Dorsalis Pedis] Pulse Rate [ Right Dorsalis Pedis] Pulse Rate [ Right Radial] Respiratory 26 H 21 25 H Rate Blood Pressure 130/85 130/85 130/85 O2 Sat by Pulse 95 96 97 Oximetry 06/02/17 06/02/17 06/02/17 05:01 05:11 05:21 Temperature Pulse Rate 77 76 77 Pulse Rate [ Left Dorsalis Pedis] Pulse Rate [ Right Dorsalis Pedis] Pulse Rate [ Right Radial] Respiratory 23 19 17 Rate Blood Pressure 130/85 130/85 130/85 O2 Sat by Pulse 98 97 97 Oximetry 06/02/17 06/02/17 06/02/17 05:31 05:41 05:51 Temperature Pulse Rate 75 76 80 Pulse Rate [ Left Dorsalis Pedis] Pulse Rate [ Right Dorsalis Pedis] Pulse Rate [ Right Radial] Respiratory 23 21 24 Rate Blood Pressure 130/85 130/85 130/85 O2 Sat by Pulse 98 97 96 Oximetry 06/02/17 06/02/17 06/02/17 06:00 06:11 06:21 Temperature Pulse Rate 79 81 78 Pulse Rate [ 72 Left Dorsalis Pedis] Pulse Rate [ 72 Right Dorsalis Pedis] Pulse Rate [ 72 Right Radial] Respiratory 19 25 H 20 Rate Blood Pressure 128/68 128/68 128/68 O2 Sat by Pulse 94 96 98 Oximetry 06/02/17 06/02/17 06/02/17 06:31 06:41 06:50 Temperature Pulse Rate 80 85 Pulse Rate [ Left Dorsalis Pedis] Pulse Rate [ Right Dorsalis Pedis] Pulse Rate [ Right Radial] Respiratory 18 17 27 H Rate Blood Pressure 128/68 128/68 O2 Sat by Pulse 97 98 97 Oximetry 06/02/17 06/02/17 06/02/17 06:51 07:01 07:11 Temperature Pulse Rate 79 89 81 Pulse Rate [ Left Dorsalis Pedis] Pulse Rate [ Right Dorsalis Pedis] Pulse Rate [ Right Radial] Respiratory 22 19 26 H Rate Blood Pressure 128/68 128/68 128/68 O2 Sat by Pulse 98 97 98 Oximetry 06/02/17 06/02/17 06/02/17 07:21 07:31 07:41 Temperature Pulse Rate 83 80 78 Pulse Rate [ Left Dorsalis Pedis] Pulse Rate [ Right Dorsalis Pedis] Pulse Rate [ Right Radial] Respiratory 13 27 H 26 H Rate Blood Pressure 128/68 128/68 128/68 O2 Sat by Pulse 98 98 97 Oximetry 06/02/17 06/02/1717 07:51 08:00 08:11 Temperature 98.7 F Pulse Rate 79 79 80 Pulse Rate [ Left Dorsalis Pedis] Pulse Rate [ Right Dorsalis Pedis] Pulse Rate [ Right Radial] Respiratory 20 25 H 20 Rate Blood Pressure 128/68 124/80 124/80 O2 Sat by Pulse 98 98 97 Oximetry 06/02/17 06/02/17 06/02/17 08:20 08:30 08:40 Temperature Pulse Rate 79 92 H 94 H Pulse Rate [ Left Dorsalis Pedis] Pulse Rate [ Right Dorsalis Pedis] Pulse Rate [ Right Radial] Respiratory 27 H 14 16 Rate Blood Pressure 124/80 124/80 O2 Sat by Pulse 97 Oximetry 06/02/17 06/02/17 06/02/17 08:50 09:00 09:01 Temperature 98.7 F Pulse Rate 82 89 Pulse Rate [ Left Dorsalis Pedis] Pulse Rate [ Right Dorsalis Pedis] Pulse Rate [ Right Radial] Respiratory 28 H 25 H Rate Blood Pressure 124/80 124/80 O2 Sat by Pulse 95 Oximetry 06/02/17 06/02/17 06/02/17 09:10 09:20 09:30 Temperature Pulse Rate 83 88 93 H Pulse Rate [ Left Dorsalis Pedis] Pulse Rate [ Right Dorsalis Pedis] Pulse Rate [ Right Radial] Respiratory 28 H 19 14 Rate Blood Pressure 124/80 124/80 124/80 O2 Sat by Pulse Oximetry 06/02/17 06/02/17 06/02/17 09:40 09:50 10:00 Temperature Pulse Rate 82 79 80 Pulse Rate [ Left Dorsalis Pedis] Pulse Rate [ Right Dorsalis Pedis] Pulse Rate [ Right Radial] Respiratory 24 26 H 25 H Rate Blood Pressure 124/80 124/80 124/85 O2 Sat by Pulse Oximetry 06/02/17 06/02/17 06/02/17 10:10 10:15 10:59 Temperature Pulse Rate 79 80 95 H Pulse Rate [ Left Dorsalis Pedis] Pulse Rate [ Right Dorsalis Pedis] Pulse Rate [ Right Radial] Respiratory 13 Rate Blood Pressure 124/85 131/81 O2 Sat by Pulse Oximetry 06/02/17 11:03 Temperature Pulse Rate 79 Pulse Rate [ Left Dorsalis Pedis] Pulse Rate [ Right Dorsalis Pedis] Pulse Rate [ Right Radial] Respiratory Rate Blood Pressure 131/81 O2 Sat by Pulse Oximetry CBC and BMP: 06/02/17 04:38 06/02/17 04:38 ABG, PT/INR, D-dimer: PT/INR, D-dimer PT 14.3 Sec. (12.2-14.9) 06/01/17 00:30 INR 1.06 (0.87-1.13) 06/01/17 00:30 Abnormal lab findings: Abnormal Labs 06/01/17 06/01/17 06/01/17 00:30 00:30 04:01 WBC 11.6 H MCHC Lymph % (Auto) 38.9 H [place] % (Auto) 8.8 H Baso % (Auto) 1.9 H [place] # 1.0 H Baso # 0.2 H Seg Neutrophils % Activated Clotting Time Sodium 135 L Potassium 5.5 H Carbon Dioxide 21 L Glucose 119 H Calcium AST ALT Total Creatine Kinase 351 H 335 H CK-MB (CK-2) 4.1 H 12.6 H CK-MB (CK-2) Rel Index Troponin T 0.248 H* D Albumin HDL Cholesterol 32 L 06/01/17 06/01/17 06/01/17 04:51 07:23 07:23 WBC MCHC Lymph % (Auto) [place] % (Auto) Baso % (Auto) [place] # Baso # Seg Neutrophils % Activated Clotting Time > 1000 H Sodium 134 L Potassium Carbon Dioxide 20 L Glucose Calcium 8.0 L AST ALT Total Creatine Kinase 421 H CK-MB (CK-2) 28.5 H CK-MB (CK-2) Rel Index 6.7 H Troponin T 0.571 H* D Albumin 3.4 L HDL Cholesterol 06/01/17 06/02/17 06/02/17 07:23 04:38 04:38 WBC MCHC 35 H Lymph % (Auto) [place] % (Auto) 11.7 H Baso % (Auto) [place] # 1.2 H Baso # Seg Neutrophils % 76.0 H Activated Clotting Time Sodium Potassium Carbon Dioxide Glucose Calcium 8.2 L AST 68 H ALT 57 H Total Creatine Kinase 428 H CK-MB (CK-2) 15.8 H CK-MB (CK-2) Rel Index Troponin T 0.440 H* D Albumin 3.4 L HDL Cholesterol
--- NOTE | 2017-06-02 12:08 | Discharge Summary ---
Providers - Providers Date of Admission: 06/01/17 01:47 Date of discharge: 06/02/17 Attending physician: VENKAT JOHNSON 06/01/17 Consult to Cardiac Rehabilitation [CONS] Routine Reason For Exam: post pci 06/01/17 01:50 Consult to Physician [CONS] Routine Consulting Provider: BRAXTON NOLAN Reason For Exam: inteventist post mi Place consult to:: yes Notified:: answering service Phone number called:: [phone] Was contact made?: Yes If yes, spoke with:: Humberto Time called:: 07:19 Primary care physician: [employer] Hospitalization Condition: Serious Pertinent studies: LHC and echo - see reports Procedures: LHC and echo - see reports Hospital course: The pt is a 41-year-old female with history of known coronary disease who presented 06/01/2017 with c/o chest pain, EKG c/w acute inferior wall OR, patient was taken emergently to the [facility] found proximal RCA to be 100% and successful PCI of the mid RCA drug-eluting stent. Post-OR echo showed normal LV EF. Pt is currently medically stable for discharge. Pt is followed by the [place] and states she will seek approval from the [place] to continue to by seen by our group as OP. Pt provided our office location and telephone number and instructed to see a job foreman within 1 week of hospital discharge. Pt verbalizes understanding. Disposition: - TO HOME OR SELFCARE - Discharge Diagnoses (1) Acute OR, inferior wall Status: Acute (2) Acute congestive heart failure with left ventricular diastolic dysfunction Status: Acute (3) Coronary artery disease Status: Chronic Qualifiers: Coronary Disease-Associated Artery/Lesion type: [place] artery [place] vs. transplanted heart: [place] heart Associated angina: with stable angina Qualified Code(s): I25.118 - Atherosclerotic heart disease of [place] coronary artery with other forms of angina pectoris (4) Tobacco abuse Status: Chronic (5) Hyperlipidemia Status: Chronic Qualifiers: Hyperlipidemia type: mixed hyperlipidemia Qualified Code(s): E78.2 - Mixed hyperlipidemia (6) Hypertension Status: Chronic Qualifiers: Hypertension type: essential hypertension Qualified Code(s): I10 - Essential (primary) hypertension (7) Obese Status: Chronic Qualifiers: Obesity type: due to excess calories Serious obesity comorbidity presence: with serious comorbidity Body mass index: BMI 37.0-37.9 Core Measure Documentation - Palliative Care Palliative Care/ Comfort Measures: Not Applicable - Core Measures Any of the following diagnoses?: acute OR - Acute OR Discharge Requirements Aspirin at discharge: Yes SAUL/ARB for LVSD if EF <40%: Yes Beta alexi at discharge: Yes Statin for LDL = or >100 mg/dl on DC: Yes Exam - Constitutional Vitals: Temp Pulse Resp BP Pulse Ox 98.7 F 79 13 131/81 95 06/02/17 09:00 06/02/17 11:03 06/02/17 10:10 06/02/17 11:03 06/02/17 09:01 General appearance: Present: no acute distress - EENT Eyes: Present: PERRL, EOM intact ENT: hearing intact, clear oral mucosa, dentition normal - Neck Neck: Present: supple, normal ROM - Respiratory Respiratory effort: normal - Cardiovascular Rhythm: regular Heart Sounds: Present: S1 & S2 - Extremities Extremities: no ischemia, pulses intact, pulses symmetrical, normal temperature , normal color - Abdominal General gastrointestinal: Present: soft, non-tender - Integumentary Integumentary: Present: clear, warm, dry - Musculoskeletal Musculoskeletal: strength equal bilaterally Plan Activity: advance as tolerated Diet: low fat, low cholesterol, low salt Wound: open to air, keep clean and dry, per your surgeon's advice Follow up with: PRIMARY CARE, [Primary Care Provider] - 7 Days VENKAT JOHNSON MD [Staff Physician] - 7 Days Prescriptions: AtorvaSTATin [Lipitor] 80 mg PO QHS #30 tablet Metoprolol [Lopressor TAB] 12.5 mg PO BID #60 tablet Ticagrelor [Brilinta] 90 mg PO BID #60 tablet
[2017-06-02 12:47] VITALS: BP 116/78
--- NOTE | 2017-06-02 16:48 | Consultation ---
PULMONARY CRITICAL CARE CONSULTATION CONSULTING PHYSICIAN: Juvencio Orozco MD REASON FOR CONSULTATION: Acute ID, status post stenting, on ReoPro, need for ICU admission. CHIEF COMPLAINT AND HISTORY OF PRESENT ILLNESS: The patient is a 41-year-old -[place] female with history significant for coronary artery disease, developed an acute inferior wall ID requiring PCI. She stated she had been compliant with her medications including aspirin and Plavix. She continued to smoke. She was doing her usual activities on the day of presentation when she had a crushing midsternal chest pain that did not radiate, did not go anywhere. She had nausea, vomiting, ____ diaphoresis. She called EMS, was brought into the ER. She was found to have an acute inferior wall ID. slab off mill tender found proximal RCA with 100% occlusion. She had a successful PCI with a drug-eluting stent. She became asymptomatic in terms of chest pain, was brought into the Intensive Care Unit where I stopped by to see her. When I stopped by to see her, the pain was gone. She was feeling better. Denied any palpitations. Denied any bleeding. Denied any nausea, vomiting, fevers, chills. That really is as much of the history of presentation as I have. PAST MEDICAL HISTORY: Coronary artery disease. She is obese. History of hypertension, hyperlipidemia, tobacco use disorder. PAST SURGICAL HISTORY: Coronary artery stenting. MEDICATIONS: She was on at the time were reviewed, pertinent medications included, she was abciximab drip, I believe it was going at 17 mL an hour. She was on a baby aspirin 81 mg p.o. daily, Lipitor 80 mg p.o. at bedtime, Zofran 4 mg IV q.8h. p.r.n., Protonix 20 mg p.o. daily, Brilinta 90 mg p.o. b.i.d., as well as p.r.n. tramadol. ALLERGIES: No known drug allergies. DIET: Obese lady. Denies acute weight loss or gain in the preceding few weeks to months. FAMILY AND SOCIAL HISTORY: Lives in the community. She has a 10+ pack year tobacco smoking history. Denies alcohol or illicit drug use or abuse. Family history, otherwise negative for coronary artery disease or other cardiac issue. REVIEW OF SYSTEMS: Complete 13-system review of systems was obtained. Pertinent positives and/or negatives as in body of history above, otherwise noncontributory. Also, denied any bleeding diathesis. No hematochezia, no melena, no hematemesis. PHYSICAL EXAMINATION: VITAL SIGNS: At presentation in the Emergency Room, review of the vital signs shows that she was afebrile, temperature 98.7, pulse 78, respiratory rate 15, blood pressure 93/58, oxygen sats were 100%, inspired oxygen concentration was not recorded. GENERAL: She is normocephalic, atraumatic, talking to me in full sentences, still looking a little anxious, in no overt respiratory distress. HEAD, EYES, EARS, NOSE, AND THROAT: No scleral icterus. No conjunctival erythema. No gross jugular venous distention. No thyromegaly. Oropharynx was moist. There was a Mallampati 3 oropharynx. NECK: Grossly, there were no palpable lymph nodes in the supraclavicular or submandibular lymph node chains. LUNGS: Auscultation of both lung ceron, faint inspiratory crackles in the bases that cleared with coughing, otherwise lungs were clear. No wheezing. HEART: Heart sounds 1 and 2 are heard. They were regular in rate and rhythm at time of my evaluation. No rubs, no murmurs. ABDOMEN: Soft. Bowel sounds are positive. Mild epigastric tenderness. No palpable hepatosplenomegaly. EXTREMITIES: Without overt digital clubbing, no cyanosis, no pedal edema. NEUROLOGIC: Pupils were equal, round, reactive to light and accommodation. Extraocular muscle movements were intact. She moved all 4 extremities spontaneously. SKIN: Normal turgor. No cellulitis. No rash. She had, I believe, arterial puncture in the right radial area. LABORATORY DATA: From my review are as follows: Admission white cell count 11,600, hemoglobin 14.3, hematocrit 42.8, platelet count 381. INR 1.01. Serum sodium 135, potassium 5.5, chloride 98.7, bicarbonate 21, BUN 17, creatinine 0.9, glucose ____. Cardiac enzymes peaked at 0.57 so far. Microbiology studies, no microbiology studies. A chest x-ray was done. I have reviewed the chest x-ray. It is essentially a normal chest x-ray. No gross cardiomegaly. No significant emphysematous change. No pneumothorax. She also had a 2D echocardiogram done. I have reviewed the report on the 2D echocardiogram. It essentially showed a normal left ventricular ____ ejection fraction, but she also had normal left ventricular diastolic filling. No significant pulmonary hypertension was mentioned. ASSESSMENT AND PLAN: 1. Acute myocardial infarction. 2. Coronary artery disease. 3. Tobacco use disorder. 4. Hyperlipidemia. 5. Obesity. 6. Hypertension. PLAN: Tobacco cessation has been strongly counseled again. She promises to stop. She is already thinking about that. We will continue to keep her in the Intensive Care Unit while she continues her abciximab drip and completes the infusion. She will be continued on aspirin. She will be started on metoprolol and other disease modifying drugs at the discretion of the physician chief of pathology. We will continue GI prophylaxis. Aspiration precautions will be maintained. Flu and pneumonia vaccination will be per protocol. Thank you very much for the consult Dr. Orozco. We will follow along and make further recommendations as the picture progresses/becomes clearer. JOB# [id number] SABAS/QASIM
== END 2017-06-02 13:15 | disposition home or self-care (01) | DRG 246 ==
LOC: ED 00:16 → CATH 01:14 → CC1 01:47
PROVIDERS: ADMIT Internal Medicine; ATTEND Internal Medicine
PROC: 4A023N7 Measurement of Cardiac Sampling and Pressure, Left Heart, Percutaneous Approach (ICD-10-PCS; principal; 2017-06-01)
PROC: 027034Z Dilation of Coronary Artery, One Artery with Drug-eluting Intraluminal Device, Percutaneous Approach (ICD-10-PCS; 2017-06-01)
PROC: 02C03ZZ Extirpation of Matter from Coronary Artery, One Artery, Percutaneous Approach (ICD-10-PCS; 2017-06-01)
PROC: B2111ZZ Fluoroscopy of Multiple Coronary Arteries using Low Osmolar Contrast (ICD-10-PCS; 2017-06-01)
DX: I21.19 ST elevation (STEMI) myocardial infarction involving other coronary artery of inferior wall (principal); I50.31 Acute diastolic (congestive) heart failure; I25.10 Atherosclerotic heart disease of native coronary artery without angina pectoris; F17.200 Nicotine dependence, unspecified, uncomplicated; E78.5 Hyperlipidemia, unspecified; E66.9 Obesity, unspecified; I11.0 Hypertensive heart disease with heart failure; I25.2 Old myocardial infarction; Z95.5 Presence of coronary angioplasty implant and graft; Z79.82 Long term (current) use of aspirin; Z68.34 Body mass index [BMI] 34.0-34.9, adult; Z79.899 Other long term (current) drug therapy; Z71.6 Tobacco abuse counseling
CPT/HCPCS: 36415; 71010; 80048; 80053; 80061; 82550; 82553; 84484; 85025; 85347; 85610; 85730; 86850; 86900; 86901; 92941; 92978; 93005; 93010; 93306; 93458; 94760; 96374; 96375; 99406; A9270-GY; C1725; C1753; C1769; C1874; C1887; C1894; C9606; J0130; J1644; J2250; J2270; J2370; J2405; J2765; J3010; J7030; J7040; J7050; Q9967